=== PATIENT | male | born 1995 | race American Indian/Alaskan Native ===

== ENCOUNTER 2017-10-05 14:29 | Emergency (ER) | payer SELFPAY ==
[2017-10-05 15:24] VITALS: RESP 18; TEMP 98.3
--- NOTE | 2017-10-05 16:55 | ED PDOC ---
Arrival/HPI - General Chief Complaint: Lower Extremity Problem/Injury Time Seen by Provider: 10/05/17 16:49 Historian: Patient - History of Present Illness Narrative History of Present Illness (Text): 10/05/17 16:51 22-year-old male presents today with left great toe pain 3 weeks. Patient states 3 weeks ago someone stepped on his foot. Patient states since then he's been trying hot compresses without improvement in the pain. Patient denies numbness weakness or tingling in the extremity. Patient states pain is worse with ambulation or standing on his feet for long period of time. Patient's pain is localized to the MTP of the great toe. Time/Duration: > week (3 weeks) Symptom Onset: Sudden Symptom Course: Unchanged Quality: Aching Severity Level: 9 Past Medical History - Provider Review Nursing Documentation Reviewed: Yes - Travel History Have you recently traveled outside [place] w/in the past 3 mons?: No - Infectious Disease Hx of Infectious Diseases: None - Pulmonary Hx Asthma: Yes - Psychiatric Hx Substance Use: No - Surgical History Other/Comment: Right leg surgery/metal george. Family/Social History - Physician Review Nursing Documentation Reviewed: Yes Family/Social History: Unknown Family HX Smoking Status: Light Smoker < 10 Cigarettes Daily Hx Alcohol Use: No Hx Substance Use: No Allergies/Home Meds Allergies/Adverse Reactions: Allergies No Known Allergies Allergy (Verified 10/05/17 15:24) Review of Systems - Review of Systems Constitutional: absent: Fatigue, Fevers Respiratory: absent: SOB, Cough Cardiovascular: absent: Chest Pain, Palpitations Gastrointestinal: absent: Abdominal Pain, Nausea, Vomiting Musculoskeletal: Arthralgias (left great toe pain) Skin: absent: Rash, Pruritis Neurological: absent: Headache, Dizziness Physical Exam Vital Signs Reviewed: Yes Vital Signs Temp Pulse Resp BP Pulse Ox 10/05/17 18:55 78 18 112/66 98 10/05/17 15:20 98.3 F 65 18 127/81 96 Temperature: Afebrile Blood Pressure: Normal Pulse: Regular Respiratory Rate: Normal Appearance: Positive for: Well-Appearing, Non-Toxic, Comfortable Pain Distress: None Mental Status: Positive for: Alert and Oriented X 3 - Systems Exam Head: Present: Atraumatic Mouth: Present: Moist Mucous Membranes Neck: Present: Normal Range of Motion Respiratory/Chest: Present: Clear to Auscultation Cardiovascular: Present: Regular Rate and Rhythm, Normal S1, S2. No: Murmurs Lower Extremity: Present: NORMAL PULSES, Normal ROM, Tenderness (left foot; + ttp over 1st MTP; no edema, no erythema, no ecchymosis; full rom of foot/toe. sensation and distal pulses intact. ), Neurovascularly Intact, Capillary Refill < 2 s. No: Swelling, Erythema, Temperature Abnormalties Neurological: Present: GCS=15 Skin: Present: Warm, Dry, Normal Color. No: Rashes Psychiatric: Present: Alert, Oriented x 3 Medical Decision Making ED Course and Treatment: 10/05/17 16:55 Patient is nontoxic well-appearing in no distress. vital signs are stable. xray left foot; no fracture toradol given for pain. crutches given for ambulation pt reassessment; pt feeling better after medications. I discussed all results in depth with the patient and advised follow-up with the primary care physician/orthopedist within the next 2 days. I advised immediate return if symptoms worsen or persist or if new concerning symptoms develop. Patient verbalizes understanding of discharge instructions and need for immediate followup. 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 No Presence of Pain Presence of Pain Yes IM Administration Charges Document 10/05/17 17:03 [facility] (Rec: 10/05/17 17:03 [id number] Injection Site MAR Injection Site Right Deltoid Charges for Administration # of IM Administrations 1 Disposition/Present on Arrival - Present on Arrival Any Indicators Present on Arrival: No History of DVT/PE: No History of Uncontrolled Diabetes: No Urinary Catheter: No History of Decub. Ulcer: No History Surgical Site Infection Following: None - Disposition Have Diagnosis and Disposition been Completed?: Yes Diagnosis: Foot pain Disposition: HOME/ ROUTINE Disposition Time: 18:46 Patient Plan: Discharge Condition: GOOD Discharge Instructions (ExitCare): Arthralgia (ED) Additional Instructions: Motrin every 6 hours as needed for pain use crutches Follow up with primary care physician within the next 2 days Follow up with the orthopedist within the next 2 days Return if symptoms worsen persist or if new symptoms develop Prescriptions: Ibuprofen [Motrin] 600 mg PO Q6H PRN #20 tab PRN Reason: pain/fever reduction Referrals: Ivan Noble III, MD [Medical Doctor] - Follow up with primary [facility] [place] - Follow up with primary [facility] [Outside] - Follow up with primary Marcel Bassett DPM [Staff Provider] - Follow up with primary Forms: [employer] (Somali), WORK NOTE
--- NOTE | 2017-10-05 18:39 | RAD ---
PROCEDURE: Left Foot Radiographs. HISTORY: left great toe pain at 1st MTP, COMPARISON: None. FINDINGS: BONES: Normal. No fracture. JOINTS: Normal. SOFT TISSUES: Normal. OTHER FINDINGS: None. IMPRESSION: Normal left foot radiographs.
[2017-10-05 19:32] VITALS: BP 112/66; PULSE 78; O2SAT 98
== END 2017-10-05 19:00 | disposition home or self-care (01) ==
LOC: ED 14:29
DX: M79.672 Pain in left foot (principal); F17.210 Nicotine dependence, cigarettes, uncomplicated
CPT/HCPCS: 73630; 96372; 99283; J1885